=== PATIENT | male | born 1995 | race Caucasian/White ===

== ENCOUNTER 2018-03-28 18:18 | Emergency (ER) | payer BC, MEDICAID ==
[~2018-03-28] VITALS: Ht 177.8 cm; Wt 57.6 kg
[2018-03-28 18:55] VITALS: BP 138/84
[2018-03-29] MEDS ORDERED: cefTRIAXone SOD 1,000 MG VL IM ONE
[2018-03-29] MEDS ORDERED: KETOROLAC TROMETH 60MG/2ML VIAL IM ONE
== END 2018-03-29 00:30 | disposition home or self-care (01) ==
LOC: ER 18:18
DX: K13.0 Diseases of lips (principal)
CPT/HCPCS: 96372; 99283; J0696; J1885

== ENCOUNTER 2024-07-28 18:25 | Inpatient (IN) | payer MEDICAID ==
[~2024-07-28] VITALS: Ht 177.8 cm; Wt 60.7 kg
[2024-07-28] MEDS: SODIUM CHLORIDE 0.9% 1,000 ML IV ONE (18:59)
[2024-07-28] MEDS: PROCHLORPERAZINE EDISYLATE 5 MG/ML 2ML VIAL IV ONE (19:22)
--- NOTE | 2024-07-28 19:52 | ED.PDOC ---
History of Present Illness HPI Comments This is a 29-year-old male who comes in with chief complaint of alcohol intoxication. The patient was found at the [facility] intoxicated and possibly having used fentanyl. According to the bystanders, the patient was sleeping over the another gas station and then walked over to [facility]. The patient was found in the police officers car by the paramedics when they arrived. The patient was more alert and able to answer some questions. He is complaining of some nausea. He was transported to our facility and upon arrival, the patient admitted to the alcohol and fentanyl use. The patient also uses methamphetamines. Chief Complaint: ETOH Time Seen by MD: 18:26 Primary Care Provider: UNKNOWN Reviewed Notes: Nurses Notes, Medications, Allergies (No allergies) Allergies: Coded Allergies: NO KNOWN ALLERGIES (Unverified , 03/28/18) Information Source: Patient, Emergency Med Personnel Mode of Arrival: EMS Severity: Moderate Timing: Hours Duration: Since onset Prehospital treatment: Accucheck (118), Biology Internship, IVF Associated signs and symptoms Associated nausea and vomiting Past Medical History PAST MEDICAL HISTORY: Denies Surgical History: Denies all surgeries Family History Family History: Unknown Social History Smoker: Cigarettes Alcohol: Heavy Drugs: Marijuana, Methamphetamine, Other (Fentanyl) Lives In: Home Constitutional: denies: chills, diaphoresis, fatigue, fever, malaise, sweats, weakness, others EENTM: denies: blurred vision, double vision, ear bleeding, ear discharge, ear drainage, ear pain, ear ringing, eye pain, eye redness, hearing loss, mouth pain, mouth swelling, nasal discharge, nose bleeding, nose congestion, nose pain, photophobia, tearing, throat pain, throat swelling, voice changes, others Respiratory: denies: cough, hemoptysis, orthopnea, SOB at rest, shortness of breath, SOB with excertion, stridor, wheezing, others Cardiovascular: denies: chest pain, dizzy spells, diaphoresis, Dyspnea on exertion, edema, irregular heart beat, left arm pain, lightheadedness, palpitations, PND, syncope, others Gastrointestinal: reports: nausea; denies: abdomen distended, abdominal pain, blood streaked bowels, constipated, diarrhea, dysphagia, difficulty swallowing, hematemesis, melena, poor appetite, poor fluid intake, rectal bleeding, rectal pain, vomiting, others Genitourinary: denies: burning, dysuria, flank pain, frequency, hematuria, incontinence, penile discharge, penile sore, pain, testicle pain, testicle swelling, urgency, others Neurological: reports: others (Altered mental status); denies: dizziness, fainting, headache, left sided numbness, left sided weakness, numbness, paresthesia, pre-existing deficit, right sided numbness, right sided weakness, seizure, speech problems, tingling, tremors, weakness Musculoskeletal: denies: back pain, gout, joint pain, joint swelling, muscle pain, muscle stiffness, neck pain, others Integumetry: denies: bruises, change in color, change in hair/nails, dryness, laceration, lesions, lumps, rash, wounds, others Allergic/Immunocompromised: denies: Difficulty Healing, Frequent Infections, Hives, Itching, others Hematologic/Lymphatic: denies: anemia, blood clots, easy bleeding, easy bruising, swollen glands, others Endocrine: denies: excessive hunger, excessive sweating, excessive thirst, excessive urination, flushing, intolerance to cold, intolerance to heat, unexplained weight gain, unexplained weight loss, others Psychiatric: denies: anxiety, bipolar disorder, depression, hopeless, panic disorder, schizophrenia, sleepless, suicidal, others Physical Exam General Appearance: Moderate Distress, Thin HEENT: Normal ENT Inspection, Pharynx Normal, TMs Normal Neck: Full Range of Motion, Non-Tender, Normal, Normal Inspection Respiratory: Chest Non-Tender, Lungs Clear, No Accessory Muscle Use, No Respiratory Distress, Normal Breath Sounds Cardiovascular: No Edema, No JVD, No Murmur, No Gallop, Normal Peripheral Pulses, Regular Rate/Rhythm Breast Exam: Deferred Gastrointestinal: No Organomegaly, Non Tender, No Pulsatile Mass, Normal Bowel Sounds, Soft Genitalia: Deferred Pelvic: Deferred Rectal: Deferred Extremities: No calf tenderness, Normal capillary refill, Normal inspection, Normal range of motion, Non-tender, No pedal edema Musculoskeletal : Apperance: Normal 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 Was a procedure done?: No Differential Dx Considerations may include: Alcohol abuse, substance abuse X-Ray, Labs, Meds, VS Vital Signs Date Time Temp Pulse Resp B/P (MAP) Pulse Ox O2 Delivery O2 Flow Rate FiO2 07/28/24 20:27 102 16 98 Room Air* 0 21 21 07/28/24 20:22 98.9 102 16 146/74 (98) 97 98.9 07/28/24 18:45 98.8 104 18 129/89 (102) 97 98.8 Lab Test 07/28/24 18:44 Range/Units Plasma/Serum Blood Alcohol 224.7 H <10 mg/dL Current Medications Medications (Trade) Dose Ordered Sig/Sofya Route Start Time Stop Time Status Last Admin Sodium Chloride 1,000 ml @ 1,000 mls/hr Q1H ONCE IV 07/28/24 18:30 07/28/24 19:29 DC 07/28/24 18:59 Prochlorperazine Edisylate (Compazine Inj) 10 mg ONCE ONCE IV 07/28/24 19:15 07/28/24 19:16 DC 07/28/24 19:22 IV Hep-Lock was established The patient was given a 1 L bolus of normal saline The patient was given Compazine 10 mg IV push for the vomiting The alcohol level is 224.7 The UDS is pending. The patient will be signed out to Dr. Lewis The patient will be admitted for observation for a toxic encephalopathy The patient remains somewhat confused and altered Time of 1ST Reevaluation: 19:52 Reevaluation 1ST: Unchanged Patient Education/Counseling: Diagnosis, Treatment, Prognosis Family Education/Counseling: No Family Present Departure 1 Departure Time of Disposition: 20:50 Impression: Primary Impression: Alcohol intoxication Qualified Codes: F10.920 - Alcohol use, unspecified with intoxication, uncomplicated Additional Impression: Fentanyl adverse reaction Qualified Codes: T40.415A - Adverse effect of fentanyl or fentanyl analogs, initial encounter Disposition: 30 STILL A PATIENT Condition: Fair Critical Care Note Critical Care Time?: No Stability Stability form required: No Heart Score Heart Score: Heart Score Response (Comments) Value History N/A 0 EKG N/A 0 Age N/A 0 Risk Factors N/A 0 Troponin N/A 0 Total 0 ROHAN ROBLES MD Jul 28, 2024 19:52
[2024-07-28 20:27] VITALS: PULSE 102; RESP 16; O2SAT 98
[2024-07-29] VITALS (14 sets, daily range): BP systolic 102–128; BP diastolic 61–83; PULSE 59–95; RESP 14–21; TEMP 98.8–98.9; O2SAT 96–100
[2024-07-29] MEDS: MAGNESIUM SULFATE 1GM/100ML 100 ML IV SCH (05:15)
[2024-07-29] MEDS: MVI in SODIUM CHLORIDE 0.9% 1,010 ML IV ONE (05:15)
[2024-07-29] MEDS: LORazepam 2MG/ML-1ML VIAL IV ONE (05:24)
[2024-07-29] MEDS: THIAMINE 100mg/ml INJ (200mg/2ml VIAL) IV ONE (05:24)
--- NOTE | 2024-07-29 06:47 | ED.PDOC ---
Departure 1 Departure Time of Disposition: 06:46 (Patient be admitted for acute alcohol withdrawal. We will give patient benzos fluids thiamine and admit patient for further workup) Impression: Primary Impression: Alcohol withdrawal Qualified Codes: F10.931 - Alcohol use, unspecified with withdrawal delirium Additional Impressions: Alcohol intoxication Qualified Codes: F10.920 - Alcohol use, unspecified with intoxication, uncomplicated Fentanyl adverse reaction Qualified Codes: T40.415A - Adverse effect of fentanyl or fentanyl analogs, initial encounter Disposition: 09 ADMITTED INPATIENT Admit to: Med Surg Condition: Serious ALEKSANDAR CHAMBERS MD Jul 29, 2024 06:47
[2024-07-29] MEDS: chlordiazePOXIDE HCL 25 MG CAP PO ONE (07:39)
[2024-07-29 07:44] LABS: Basophils # (auto) 0.1 10 ^3/uL (0-0.2); Basophils % (auto) 0.4 % (0.0-2.0); Eosinophils # (auto) 0 10 ^3/uL (0-0.8); Eosinophils % (auto) 0.1 % (0.0-7.0); Hematocrit 49.1 % (41.0-53.0); Hemoglobin 16.6 g/dL (13.5-17.5); Lymphocytes % (auto) 7.8 % (10.0-50.0); Mean Corpuscular Hgb Conc. 33.9 g/dL (32.0-36.0); Mean Corpuscular Volume 97.2 fL (80.0-100.0); Monocytes # (auto) 0.7 10 ^3/uL (0-1.3); Monocytes % (auto) 5.4 % (0.0-12.0); Neutrophils # (auto) 10.7 10 ^3/uL (1.6-8.6); Neutrophils % (auto) 86.3 % (37.0-80.0); Nucleated Red Blood Cells % 0.1 %; Platelet Count (auto) 421 10^3/uL (140-450); Red Blood Cells 5.05 10^6/uL (4.5-5.90); Red Cell Distribution Width 16.1 % (11.8-14.3); White Blood Cell 12.4 10^3/uL (4.4-10.8)
[2024-07-29] MEDS: ONDANSETRON HCL 4 MG/2 ML VIAL IV ONE (07:57)
[2024-07-29] MEDS ORDERED: LORazepam 2MG/ML-1ML VIAL IV PRN (08:00)
[2024-07-29] MEDS ORDERED: MORPHINE SULFATE INJ 2 MG/ml SYRG IV PRN (08:00)
[2024-07-29] MEDS ORDERED: ACETAMINOPHEN 325 MG TAB PO PRN (08:00)
[2024-07-29] MEDS ORDERED: NITROGLYCERIN 0.4 MG SL TAB SL PRN (08:00)
[2024-07-29] MEDS ORDERED: DOCUSATE SOD 100 MG CAP PO PRN (08:00)
[2024-07-29] MEDS ORDERED: ONDANSETRON HCL 4 MG/2 ML VIAL IV PRN (08:00)
[2024-07-29] MEDS: chlordiazePOXIDE HCL 25 MG CAP PO SCH (08:00)
--- NOTE | 2024-07-29 08:06 | DVHHP2 ---
History of Present Illness Reason for Visit: ETOH abuse History of Present Illness Jack Wheatley is a 29-year-old male who is homeless with history of polysubstance abuse. He states he drinks ETOH daily about a 750ml/bottle a day, uses fentanyl daily, and methamphetamines occasionally. He was found sleeping at a gas station and brought to the hospital for withdrawal symptoms. Patient is drowsy on assessment. He will awaken when aroused, but falls back asleep during the conversation. States he does have family in [place], but does not want them contacted. Past Surgical History: None Smoke: <1 pack per day ALCOHOL: heavy Drugs: Marijuana, Other (Fentanyl, methamphetamines) Lives: Homeless Domestic Violence: Neg Review of Systems Constitutional: Yes: Malaise; No: Fever, Chills, Sweats, Weakness, Other Eyes: No: Pain, Vision change, Conjunctivae inflammation, Eyelid inflammation, Other, Redness ENT: No: Ear pain, Ear discharge, Nose pain, Nose discharge, Nose congestion, Mouth pain, Mouth swelling, Throat pain, Throat swelling, Other Respiratory: No: Cough, Dry, Shortness of breath, SOB with excertion, Wheezing, Hemoptysis, Pleuritic Pain, Sputum, Wheezing, Other Cardiovascular: No: Chest Pain, Palpitations, Orthopnea, Paroxysmal Noc. Dyspnea, Edema, Lt Headedness, Other Gastrointestinal: No: Nausea, Vomiting, Abdominal Pain, Diarrhea, Constipation, Melena, Hematochezia, Other Genitourinary: No Dysuria, No Frequency, No Incontinence, No Hematuria, No Retention, No Other Musculoskeletal: No: other, neck pain, shoulder pain, arm pain, back pain, hand pain, leg pain, foot pain Skin: No: Rash, Lesions, Jaundice, Bruising, Other Neurological: Weakness, Incoordination, Change in speech, Confusion, Other (tremors); No: Numbness, Seizures Allergies: Coded Allergies: NO KNOWN ALLERGIES (Unverified , 03/28/18) Exam Vital Signs Vital Signs Date Time Temp Pulse Resp B/P (MAP) Pulse Ox O2 Delivery O2 Flow Rate FiO2 07/28/24 22:43 98.2 72 18 107/66 (80) 96 98.2 07/28/24 20:27 Room Air* 0 21 21 General Appearance: Alert, Oriented X3, Cooperative, moderate distress HEENT: Atraumatic, PERRLA Respiratory: Clear to auscultation, Normal air movement Cardiovascular: Normal S1, Normal S2, Other (SR-ST) Abdominal: Normal bowel sounds, Soft, No tenderness Extremities: No clubbing, No cyanosis, No edema, Normal pulses Skin: No rashes, No breakdown, No significant lesion Psych/Mental Status: Other (Drowsy) Labs/Xrays Labs Test 07/29/24 07:23 Range/Units White Blood Count 12.4 H 4.4-10.8 10^3/uL Red Blood Count 5.05 4.5-5.90 10^6/uL Hemoglobin 16.6 13.5-17.5 g/dL Hematocrit 49.1 41.0-53.0 % Mean Corpuscular Volume 97.2 80.0-100.0 fL Mean Corpuscular Hemoglobin 33.0 H 28.0-32.0 pg Mean Corpuscular Hemoglobin Concent 33.9 32.0-36.0 g/dL Red Cell Distribution Width 16.1 H 11.8-14.3 % Platelet Count 421 140-450 10^3/uL Mean Platelet Volume 7.6 6.9-10.8 fL Neutrophils (%) (Auto) 86.3 H 37.0-80.0 % Lymphocytes (%) (Auto) 7.8 L 10.0-50.0 % Monocytes (%) (Auto) 5.4 0.0-12.0 % Eosinophils (%) (Auto) 0.1 0.0-7.0 % Basophils (%) (Auto) 0.4 0.0-2.0 % Neutrophils # (Auto) 10.7 H 1.6-8.6 10 ^3/uL Lymphocytes # (Auto) 1.0 0.4-5.4 10 ^3/uL Monocytes # (Auto) 0.7 0-1.3 10 ^3/uL Eosinophils # (Auto) 0 0-0.8 10 ^3/uL Basophils # (Auto) 0.1 0-0.2 10 ^3/uL Nucleated Red Blood Cells 0.1 % INDICATION: Elevated liver enzymes FINDINGS: Nondiagnostic examination as patient was uncooperative. IMPRESSION: Nondiagnostic examination as patient was uncooperative. INDICATION: SOB FINDINGS: . The heart and mediastinal contours are grossly unremarkable. There is no evidence of pleural disease. The lungs are clear. The bony structures of the chest are intact without fracture. IMPRESSION: 1. No evidence of acute disease. Assessment/Plan Assessment/Plan Assessment: Alcohol withdrawal, Polysubstance abuse, Transaminitis, Tobacco dependance, Plan: Admit to [facility], CIWA protocol, Librium tapering dose, IV hydration, Banana bag, Daily labs, Manage/Monitor electrolytes, Seizure precautions, Liver ultrasound, Social service consult, Chest X-ray, UDS, Plan discussed with: Patient My Orders Orders - DEEPA DUMONT Procedure Category Date Status Time Comprehensive LAB 07/29/24 In Process Metabolic Panel 07:11 Blood Alcohol LAB 07/29/24 In Process 07:11 Admit ADMIT 07/29/24 Verified 08:00 Code Status CODE 07/29/24 Verified 08:00 Ondansetron Hcl PHA 07/29/24 Verified (Zofran) 08:00 Docusate Sodium [facility] 07/29/24 Verified Capsule (Colace 08:00 Complete Blood Count LAB 07/30/24 Verified 04:00 Comprehensive LAB 07/30/24 Verified Metabolic Panel 04:00 Condition: Critical [facility] 07/29/24 Verified 08:00 Acetaminophen Tablet [facility] 07/29/24 Verified (Tylenol Tablet) 08:00 Nitroglycerin [facility] 07/29/24 Verified Sublingual (Ntrostat 08:00 Morphine Sulfate [facility] 07/29/24 Verified Injection 08:00 Stat Ekg For Chest [facility] 07/29/24 Verified Pain 08:00 Notify Md Of Changes [facility] 07/29/24 Verified From Base 08:00 Math Coach For [facility] 07/29/24 Verified 24 Hours 08:00 Emergency Dysrhythmia [facility] 07/29/24 Verified Protocol 08:00 Rhythm Strips Once [facility] 07/29/24 Verified Every Shift 08:00 Oxygen By Nasal RT 07/29/24 Verified Cannula 08:00 Ativan 1mg Iv Q4hr Atc PHA 07/29/24 Verified 08:00 Ativan 1mg Iv Q2hr Prn PHA 07/29/24 Verified 08:00 Librium 50mg Po Q8hr PHA 07/29/24 Verified Day 1 08:00 Librium 50mg Po Q12hr PHA 07/30/24 Verified Day 2 10:00 Librium 25mg Po Q12hr PHA 07/31/24 Verified X Day 3 10:00 Librium 25mg Po Qam PHA 08/01/24 Verified Day 4 07:00 Banana Bag D5w PHA 07/29/24 Verified 08:00 Date of Service: Jul 29, 2024 Billing Provider: DEEPA DUMONT Common Visit Codes: [id number] INP/OBS CARE (HIGH) DEEPA DUMONT Jul 29, 2024 08:06
[2024-07-29] MEDS ORDERED: METOCLOPRAMIDE HCL 5MG/ml INJ 2ml VIAL IV PRN (08:15)
[2024-07-29 08:24] LABS: Anion Gap 18 (5-15); Bilirubin, Total 0.9 mg/dL (0.2-1.0); Carbon Dioxide 21 mmol/L (20-31); Chloride 100 mmol/L (98-107); Potassium 4.6 mmol/L (3.5-5.1); Sodium 139 mmol/L (136-145)
[2024-07-29 08:25] LABS: Alanine Aminotransferase 52 U/L (7-40); Alkaline Phosphatase 132 U/L (46-116); Aspartate Aminotransferase 64 U/L (<34); Glucose 65 mg/dL (74-106)
[2024-07-29 08:26] LABS: Calcium 11.2 mg/dL (8.7-10.4)
[2024-07-29 08:35] LABS: BUN/Creatinine Ratio 16.3 (10.0-20.0); Blood Urea Nitrogen 14 mg/dL (9-23)
[2024-07-29] MEDS: SODIUM CHLORIDE 0.9% 1,000 ML IV ONE (08:52)
[2024-07-29] MEDS: LORazepam 2MG/ML-1ML VIAL IV SCH (08:53)
[2024-07-29] MEDS: FOLIC ACID 1 MG, MULTIPLE VITAMIN 10 ML, MAGNESIUM SULF SDV 50% 8 MEQ, THIAMINE INJ 100... INJ SCH (08:54)
[2024-07-29 09:23] LABS: Blood Alcohol < 3.0 mg/dL (<10)
--- NOTE | 2024-07-29 10:31 | DVH ---
INDICATION: SOB TECHNIQUE: Frontal view of the chest. COMPARISON: None FINDINGS: . The heart and mediastinal contours are grossly unremarkable. There is no evidence of pleural disea se. The lungs are clear. The bony structures of the chest are intact without fracture. IMPRESSION: 1. No evidence of acute disease.
--- NOTE | 2024-07-29 11:50 | DVH ---
INDICATION: Elevated liver enzymes TECHNIQUE: Multiple real-time sonographic images were obtained of the right upper quadrant. COMPARISON: None FINDINGS: Nondiagnostic examination as patient was uncooperative. IMPRESSION: Nondiagnostic examination as patient was uncooperative.
[2024-07-29] MEDS: THIAMINE HCL 100 MG TAB PO ONE (17:00)
[2024-07-29] MEDS: MULTIPLE VITAMIN TAB PO ONE (17:00)
[2024-07-29] MEDS: MAGNESIUM OXIDE 400 MG TAB PO ONE (17:00)
[2024-07-29] MEDS: FOLIC ACID 1 MG TAB PO ONE (17:00)
[2024-07-30] VITALS (7 sets, daily range): BP systolic 102–119; BP diastolic 64–82; PULSE 70–82; RESP 17–20; TEMP 98.3–98.5; O2SAT 97–100
[2024-07-30 06:50] LABS: Basophils # (auto) 0.1 10 ^3/uL (0-0.2); Basophils % (auto) 0.9 % (0.0-2.0); Eosinophils # (auto) 0.1 10 ^3/uL (0-0.8); Eosinophils % (auto) 0.8 % (0.0-7.0); Hemoglobin 16.4 g/dL (13.5-17.5); Lymphocytes # (auto) 2.3 10 ^3/uL (0.4-5.4); Lymphocytes % (auto) 20.9 % (10.0-50.0); Mean Corpuscular Hemoglobin 33.7 pg (28.0-32.0); Mean Corpuscular Hgb Conc. 34.9 g/dL (32.0-36.0); Mean Corpuscular Volume 96.5 fL (80.0-100.0); Monocytes # (auto) 0.8 10 ^3/uL (0-1.3); Monocytes % (auto) 7.3 % (0.0-12.0); Neutrophils # (auto) 7.6 10 ^3/uL (1.6-8.6); Neutrophils % (auto) 70.1 % (37.0-80.0); Nucleated Red Blood Cells % 0.3 %; Platelet Count (auto) 398 10^3/uL (140-450); Red Blood Cells 4.86 10^6/uL (4.5-5.90); Red Cell Distribution Width 15.7 % (11.8-14.3); White Blood Cell 10.8 10^3/uL (4.4-10.8)
[2024-07-30 07:00] LABS: Alanine Aminotransferase 39 U/L (7-40); Alkaline Phosphatase 110 U/L (46-116); Anion Gap 11 (5-15); BUN/Creatinine Ratio 17.1 (10.0-20.0); Bilirubin, Total 0.9 mg/dL (0.2-1.0); Blood Urea Nitrogen 14 mg/dL (9-23); Calcium 10.3 mg/dL (8.7-10.4); Carbon Dioxide 26 mmol/L (20-31); Chloride 104 mmol/L (98-107); Glucose 86 mg/dL (74-106); Potassium 4.5 mmol/L (3.5-5.1); Sodium 141 mmol/L (136-145); Total Protein 7.2 g/dL (5.7-8.2)
[2024-07-30 07:02] LABS: Albumin 4.9 g/dL (3.2-4.8); Aspartate Aminotransferase 44 U/L (<34)
[2024-07-30] MEDS ORDERED: MAGNESIUM OXIDE 400 MG TAB PO SCH (10:00)
[2024-07-30] MEDS ORDERED: FOLIC ACID 1 MG TAB PO SCH (10:00)
[2024-07-30] MEDS ORDERED: MULTIPLE VITAMIN TAB PO SCH (10:00)
[2024-07-30] MEDS ORDERED: THIAMINE HCL 100 MG TAB PO SCH (10:00)
[2024-07-30] MEDS ORDERED: chlordiazePOXIDE HCL 25 MG CAP PO SCH (10:00)
--- NOTE | 2024-07-30 14:54 | DVHDS2 ---
Discharge Summary Date of Admission Jul 29, 2024 at 08:00 Date of Discharge: Jul 30, 2024 Labs/Diagnostic Data: Laboratory Results Test 07/30/24 06:31 07/29/24 07:23 White Blood Count 10.8 10^3/uL (4.4-10.8) Red Blood Count 4.86 10^6/uL (4.5-5.90) Hemoglobin 16.4 g/dL (13.5-17.5) Hematocrit 47.0 % (41.0-53.0) Mean Corpuscular Volume 96.5 fL (80.0-100.0) Mean Corpuscular Hemoglobin 33.7 pg (28.0-32.0) Mean Corpuscular Hemoglobin Concent 34.9 g/dL (32.0-36.0) Red Cell Distribution Width 15.7 % (11.8-14.3) Platelet Count 398 10^3/uL (140-450) Mean Platelet Volume 7.3 fL (6.9-10.8) Neutrophils (%) (Auto) 70.1 % (37.0-80.0) Lymphocytes (%) (Auto) 20.9 % (10.0-50.0) Monocytes (%) (Auto) 7.3 % (0.0-12.0) Eosinophils (%) (Auto) 0.8 % (0.0-7.0) Basophils (%) (Auto) 0.9 % (0.0-2.0) Neutrophils # (Auto) 7.6 10 ^3/uL (1.6-8.6) Lymphocytes # (Auto) 2.3 10 ^3/uL (0.4-5.4) Monocytes # (Auto) 0.8 10 ^3/uL (0-1.3) Eosinophils # (Auto) 0.1 10 ^3/uL (0-0.8) Basophils # (Auto) 0.1 10 ^3/uL (0-0.2) Nucleated Red Blood Cells 0.3 % Sodium Level 141 mmol/L (136-145) Potassium Level 4.5 mmol/L (3.5-5.1) Chloride Level 104 mmol/L (98-107) Carbon Dioxide Level 26 mmol/L (20-31) Anion Gap 11 (5-15) Blood Urea Nitrogen 14 mg/dL (9-23) Creatinine 0.82 mg/dL (0.700-1.30) Glomerular Filtration Rate Calc 122 mL/min (>90) BUN/Creatinine Ratio 17.1 (10.0-20.0) Serum Glucose 86 mg/dL (74-106) Calcium Level 10.3 mg/dL (8.7-10.4) Total Bilirubin 0.9 mg/dL (0.2-1.0) Aspartate Amino Transferase (AST) 44 U/L (<34) Alanine Aminotransferase (ALT) 39 U/L (7-40) Alkaline Phosphatase 110 U/L (46-116) Total Protein 7.2 g/dL (5.7-8.2) Albumin 4.9 g/dL (3.2-4.8) Plasma/Serum Blood Alcohol < 3.0 mg/dL (<10) Other Laboratory Tests 07/30/24 06:31 Brief Hx & Hospital Course: Jack Wheatley is a 29-year-old male who is homeless with history of polysubstance abuse. He states he drinks ETOH daily about a 750ml/bottle a day, uses fentanyl daily, and methamphetamines occasionally. He was found sleeping at a gas station and brought to the hospital for withdrawal symptoms. Patient is drowsy on assessment. He will awaken when aroused, but falls back asleep during the conversation. States he does have family in [place], but does not want them contacted. Left ama Condition at Discharge: Good Final Diagnosis/Problems List Alcohol withdrawal Discharge Disposition: AMA Discharge Statement: "Patient was advised to return to the ER or call 911 if any headaches, dizziness, shortness of breath, chest pain, abdominal pain, bleeding, fevers, or worsening of medical condition. Patient was counseled about treatment plan, medications, possible side effects, patientverbalized understanding. All questions were answered to the best of my ability. This discharge took greater then 30 minutes in planning, reviewing documentation, counseling the patient, and discussing with other team members." ASSESSMENT ASSESSMENT Assessment Date of Service: Jul 30, 2024 Billing Provider: HEIDE AUGUSTINE MD Common Visit Codes: 04301-QBD/OBS DISCH DAY >30min HEIDE AUGUSTINE MD Jul 30, 2024 14:54
[2024-07-31] MEDS ORDERED: chlordiazePOXIDE HCL 25 MG CAP PO SCH (10:00)
[2024-08-01] MEDS ORDERED: chlordiazePOXIDE HCL 25 MG CAP PO SCH (07:00)
== END 2024-07-30 06:58 | disposition left against medical advice (07) | DRG 816 ==
LOC: EDUNIT# 18:25 → EDBD 18:25 → ER 18:32 → OVERFLOW 07-29 08:00
PROVIDERS: ADMIT Hospitalist; ATTEND Hospitalist
DX: T51.0X1A Toxic effect of ethanol, accidental (unintentional), initial encounter (principal); G92.8 Other toxic encephalopathy; F10.120 Alcohol abuse with intoxication, uncomplicated; F10.139 Alcohol abuse with withdrawal, unspecified; F19.10 Other psychoactive substance abuse, uncomplicated; F17.210 Nicotine dependence, cigarettes, uncomplicated; R74.01 Elevation of levels of liver transaminase levels; T40.415A Adverse effect of fentanyl or fentanyl analogs, initial encounter; F11.90 Opioid use, unspecified, uncomplicated; F15.90 Other stimulant use, unspecified, uncomplicated; Z53.29 Procedure and treatment not carried out because of patient's decision for other reasons; Z59.00 Homelessness unspecified; Y92.89 Other specified places as the place of occurrence of the external cause; Y90.7 Blood alcohol level of 200-239 mg/100 ml
CPT/HCPCS: 36415; 71045; 76705; 80053; 80320; 85025; 87081; 96361; 96374; G0378; J2405